=== PATIENT | male | born 1960 | race American Indian/Alaskan Native ===

== ENCOUNTER 2020-02-15 14:18 | Emergency (ER) | payer OTHER ==
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
[2020-02-15 14:33] VITALS: BP 120/75
--- NOTE | 2020-02-15 15:06 | XRay Report ---
Left knee 3 views INDICATION: Left knee pain. IMPRESSION: No fracture or subluxation of the left knee is identified. Minimal degenerative changes o f the medial femorotibial compartment. Signer Name: Jenaro Blum MD Signed: 02/15/2020 3:01 PM Workstation Name: [id number]
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
== END 2020-02-15 16:25 | disposition home or self-care (01) ==
LOC: ED 14:18
DX: S16.1XXA Strain of muscle, fascia and tendon at neck level, initial encounter (principal); S80.02XA Contusion of left knee, initial encounter; Z79.899 Other long term (current) drug therapy; V49.49XA Driver injured in collision with other motor vehicles in traffic accident, initial encounter; W22.10XA Striking against or struck by unspecified automobile airbag, initial encounter; Y93.89 Activity, other specified; Y92.410 Unspecified street and highway as the place of occurrence of the external cause; Y99.8 Other external cause status
CPT/HCPCS: 72040; 72100